=== PATIENT | male | born 1945 | race African-American/Black ===

== ENCOUNTER 2017-03-05 11:06 | Emergency (ER) | payer OTHER, MEDICAID ==
[~2017-03-05] VITALS: Ht 175.3 cm; Wt 64.0 kg
[2017-03-05 12:27] LABS: BASOPHIL % 0.6 % (0-2); PLATELET COUNT 198 x10^3mcL (130-400)
[2017-03-05 12:40] LABS: CALCIUM 9.1 mg/dL (8.5-10.1); CARBON DIOXIDE 27.6 mmol/L (21-32); CHLORIDE SERUM 104 mmol/L (98-107); CREATININE SERUM 0.8 mg/dL (0.7-1.3); GFR1 > 60 mL/min; GLUCOSE SERUM 102 mg/dL (74-106); POTASSIUM SERUM 3.7 mmol/L (3.5-5.1); SODIUM SERUM 138 mmol/L (136-145)
[2017-03-05 12:42] LABS: RED CELL DISTRIBUTION WIDTH 14.6 % (11.5-14.5)
[2017-03-05 12:45] LABS: ALBUMIN 3.4 g/dL (3.4-5.0); ALKALINE PHOSPHATASE 45 U/L (46-116); ALT/SGPT 29 U/L (16-63); AST/SGOT 27 U/L (15-37); BILIRUBIN TOTAL 0.51 mg/dL (0.20-1.00); TOTAL PROTEIN, SERUM 7.5 g/dL (6.4-8.2)
[2017-03-05 14:48] VITALS: BP 142/65
== END 2017-03-05 14:48 | disposition home or self-care (01) ==
LOC: ED 11:06
PROVIDERS: Emergency Medicine
DX: R04.0 Epistaxis (principal); J34.89 Other specified disorders of nose and nasal sinuses; I10 Essential (primary) hypertension; J44.9 Chronic obstructive pulmonary disease, unspecified

== ENCOUNTER 2017-06-08 12:59 | Inpatient (IN) | payer OTHER ==
[~2017-06-08] VITALS: Ht 177.8 cm; Wt 60.3 kg
[2017-06-08] MEDS ORDERED: SINGULAIR4 MG/Packe (13:43)
[2017-06-08] MEDS ORDERED: THE50 (13:43)
[2017-06-08] MEDS ORDERED: ASPIR 8181 MG PO (13:43)
[2017-06-08] MEDS ORDERED: LOSARTAN POTASS25 M1 PO (13:43)
[2017-06-08] MEDS ORDERED: VENTOLIN H0.09 MG/A1 (13:44)
[2017-06-08 14:04] LABS: BASOPHIL % 0.3 % (0-2); PLATELET COUNT 201 x10^3mcL (130-400); RED CELL DISTRIBUTION WIDTH 14.3 % (11.5-14.5)
[2017-06-08 14:47] LABS: CALCIUM 9.3 mg/dL (8.5-10.1); CARBON DIOXIDE 28.5 mmol/L (21-32); CHLORIDE SERUM 104 mmol/L (98-107); GFR1 > 60 mL/min; GLUCOSE SERUM 104 mg/dL (74-106); POTASSIUM SERUM 3.8 mmol/L (3.5-5.1); SODIUM SERUM 144 mmol/L (136-145)
[2017-06-08 15:14] LABS: ALBUMIN 3.6 g/dL (3.4-5.0); ALKALINE PHOSPHATASE 53 U/L (46-116); ALT/SGPT 41 U/L (16-63); AST/SGOT 38 U/L (15-37); BILIRUBIN TOTAL 0.35 mg/dL (0.20-1.00); TOTAL PROTEIN, SERUM 8.7 g/dL (6.4-8.2)
[2017-06-08 15:16] LABS: CK-MB 1.8 ng/mL (0-3.6)
[2017-06-08 15:22] VITALS: BP 126/81
[2017-06-08 15:31] LABS: MAGNESIUM 2.2 mg/dL (1.8-2.4)
[2017-06-08 15:33] LABS: CHOLESTEROL/HDL RATIO 3.1
[2017-06-08 15:57] LABS: T3 TOTAL 0.97 ng/mL
[2017-06-08 16:05] VITALS: BP 134/74
[2017-06-08 16:07] VITALS: Ht 177.8 cm; Wt 60.3 kg
[2017-06-08 18:00] LABS: FREE T4 1.32 ng/dL (0.76-1.46); FREE THYROXINE INDEX 3.2 ug/dL (1.4-4.5)
[2017-06-08 18:16] LABS: microscopic required? NO
[2017-06-08 18:34] LABS: UA SPECIFIC GRAVITY >=1.030 (1.005-1.035); urine erythrocyte NEGATIVE (NEGATIVE)
[2017-06-08 21:38] VITALS: BP 116/65
[2017-06-09 05:48] VITALS: BP 127/72
[2017-06-09 06:21] LABS: PLATELET COUNT 170 x10^3mcL (130-400); RED CELL DISTRIBUTION WIDTH 14.2 % (11.5-14.5)
[2017-06-09 06:44] LABS: CALCIUM 8.6 mg/dL (8.5-10.1); CARBON DIOXIDE 24.4 mmol/L (21-32); CHLORIDE SERUM 106 mmol/L (98-107); CREATININE SERUM 0.9 mg/dL (0.7-1.3); GFR1 > 60 mL/min; GLUCOSE SERUM 158 mg/dL (74-106); POTASSIUM SERUM 4.5 mmol/L (3.5-5.1); SODIUM SERUM 141 mmol/L (136-145)
[2017-06-09 06:48] LABS: BASOPHIL % 0 % (0-2)
[2017-06-09 10:10] VITALS: BP 140/71
[2017-06-09 13:30] VITALS: BP 145/106
[2017-06-09 18:53] VITALS: BP 143/74
[2017-06-09 22:05] VITALS: BP 153/73
[2017-06-10 06:03] VITALS: BP 144/78
[2017-06-10 06:46] LABS: PLATELET COUNT 180 x10^3mcL (130-400)
[2017-06-10 06:52] LABS: BASOPHIL % 0 % (0-2); RED CELL DISTRIBUTION WIDTH 14.6 % (11.5-14.5)
[2017-06-10 07:17] LABS: CALCIUM 8.3 mg/dL (8.5-10.1); CHLORIDE SERUM 107 mmol/L (98-107); CREATININE SERUM 0.8 mg/dL (0.7-1.3); GFR1 > 60 mL/min; GLUCOSE SERUM 134 mg/dL (74-106); POTASSIUM SERUM 4.7 mmol/L (3.5-5.1); SODIUM SERUM 141 mmol/L (136-145)
[2017-06-10 09:48] VITALS: BP 134/73
[2017-06-10] MEDS ORDERED: LIPI10 PO (12:07)
[2017-06-10] MEDS ORDERED: PREDNISONE50 MG PO (13:00)
[2017-06-10] MEDS ORDERED: LEVAQUIN750 MG PO (13:03)
[2017-06-10 17:09] VITALS: BP 139/75
[2017-06-10 17:53] VITALS: BP 139/75
== END 2017-06-10 18:45 | disposition home or self-care (01) | DRG 192 ==
LOC: ED 12:59 → DU 14:26
PROVIDERS: Emergency Medicine; ADMIT Family Medicine
DX: J44.1 Chronic obstructive pulmonary disease with (acute) exacerbation (principal); R73.03 Prediabetes; G47.33 Obstructive sleep apnea (adult) (pediatric); I10 Essential (primary) hypertension; B18.2 Chronic viral hepatitis C; E78.5 Hyperlipidemia, unspecified; F14.10 Cocaine abuse, uncomplicated; F11.10 Opioid abuse, uncomplicated; F12.10 Cannabis abuse, uncomplicated; Z68.20 Body mass index [BMI] 20.0-20.9, adult; Z87.891 Personal history of nicotine dependence; Z79.82 Long term (current) use of aspirin; Z99.81 Dependence on supplemental oxygen
CPT/HCPCS: 36600; 83880; 84439; J1644; J1956; J2920; J2930; J3475; J7030; J7613; J7620; J7626; J7644; Q0092

== ENCOUNTER 2017-07-11 11:55 | Inpatient (IN) | payer OTHER ==
[~2017-07-11] VITALS: Ht 175.3 cm; Wt 63.0 kg
[~2017-07-11 11:55] MED LIST: ASPIR 8181 MG PO; LEVAQUIN750 MG PO; LIPI10 PO; LOSARTAN POTASS25 M1 PO; PREDNISONE50 MG PO; SINGULAIR4 MG/Packe; THE50; VENTOLIN H0.09 MG/A1
[2017-07-11 13:21] LABS: BASOPHIL % 0.6 % (0-2); PLATELET COUNT 187 x10^3mcL (130-400); RED CELL DISTRIBUTION WIDTH 14.8 % (11.5-14.5)
[2017-07-11 13:53] LABS: CALCIUM 9.3 mg/dL (8.5-10.1); CARBON DIOXIDE 32.3 mmol/L (21-32); CHLORIDE SERUM 107 mmol/L (98-107); CREATININE SERUM 0.9 mg/dL (0.7-1.3); GFR1 > 60 mL/min; GLUCOSE SERUM 95 mg/dL (74-106); POTASSIUM SERUM 4.2 mmol/L (3.5-5.1); SODIUM SERUM 141 mmol/L (136-145)
[2017-07-11 14:10] LABS: ALBUMIN 3.5 g/dL (3.4-5.0); ALKALINE PHOSPHATASE 48 U/L (46-116); ALT/SGPT 28 U/L (16-63); AST/SGOT 25 U/L (15-37); BILIRUBIN TOTAL 0.4 mg/dL (0.20-1.00)
[2017-07-11 14:12] LABS: C REACTIVE PROTEIN 0.2 mg/dL (<=0.9); TOTAL PROTEIN, SERUM 8.3 g/dL (6.4-8.2)
[2017-07-11 14:13] LABS: CK-MB 2.3 ng/mL (0-3.6)
[2017-07-11 14:17] LABS: T3 TOTAL 1.04 ng/mL
[2017-07-11 15:04] LABS: FREE T4 1.24 ng/dL (0.76-1.46); FREE THYROXINE INDEX 3.4 ug/dL (1.4-4.5); T4(THYROXINE) 8.5 ug/dL (4.7-13.3)
[2017-07-11 15:48] LABS: microscopic required? NO
[2017-07-11 15:55] VITALS: BP 177/106
[2017-07-11 16:00] LABS: UA SPECIFIC GRAVITY 1.025 (1.005-1.035); urine erythrocyte NEGATIVE (NEGATIVE)
[2017-07-11 16:16] LABS: MAGNESIUM 1.9 mg/dL (1.8-2.4); PHOSPHOROUS 2.8 mg/dL (2.5-4.9)
[2017-07-11 16:17] LABS: CHOLESTEROL/HDL RATIO 3.6
[2017-07-11 18:41] VITALS: BP 177/105
[2017-07-11] MEDS ORDERED: LIPI10 PO (19:53)
[2017-07-11 22:01] VITALS: BP 164/92
[2017-07-12 05:36] VITALS: BP 145/86
[2017-07-12 10:32] VITALS: BP 149/96
[2017-07-12 14:58] VITALS: BP 119/71
[2017-07-12 18:06] VITALS: BP 167/99
[2017-07-12 21:58] VITALS: BP 152/93
[2017-07-13 07:02] VITALS: BP 165/93
[2017-07-13 08:00] VITALS: BP 170/93
[2017-07-13 10:21] LABS: ERYTHROCYTE SED RATE 31 mm/hr (0-20)
[2017-07-13 13:26] VITALS: BP 139/70
[2017-07-13 18:25] VITALS: BP 150/84
[2017-07-13 21:00] VITALS: BP 142/85
[2017-07-14 05:33] VITALS: BP 159/91
[2017-07-14 10:26] VITALS: BP 163/81
[2017-07-14 11:32] VITALS: BP 163/81
[2017-07-14] MEDS ORDERED: SYMBICORT1 AE3 INH (11:37)
[2017-07-14] MEDS ORDERED: SPIRIVA18 MC1 INH (11:37)
[2017-07-14] MEDS ORDERED: MILLIPRED5 M1 PO (11:41)
[2017-07-14] MEDS ORDERED: PREDNISONE10 MG PO (11:41)
[2017-07-14] MEDS ORDERED: BD LACTINEX1.4 MG PO (11:55)
[2017-07-14] MEDS ORDERED: LEVAQUIN750 MG PO (11:55)
[2017-07-14 13:50] VITALS: BP 139/84
== END 2017-07-14 15:20 | disposition home health service (06) | DRG 190 ==
LOC: ED 11:55 → DU 17:16
PROVIDERS: Specialist; ADMIT Family Medicine
DX: J44.1 Chronic obstructive pulmonary disease with (acute) exacerbation (principal); G93.41 Metabolic encephalopathy; J96.20 Acute and chronic respiratory failure, unspecified whether with hypoxia or hypercapnia; D68.69 Other thrombophilia; E11.9 Type 2 diabetes mellitus without complications; G47.33 Obstructive sleep apnea (adult) (pediatric); I10 Essential (primary) hypertension; I36.1 Nonrheumatic tricuspid (valve) insufficiency; E78.5 Hyperlipidemia, unspecified; Z99.81 Dependence on supplemental oxygen; Z68.20 Body mass index [BMI] 20.0-20.9, adult; Z87.891 Personal history of nicotine dependence
CPT/HCPCS: 36600; 83880; 84439; 94150; 97110-GP; 97116-GP; 97530-GP; J1644; J1956; J2001; J2920; J2930; J3490; J7030; J7613; J7620; J7626; J7644; Q0092